=== PATIENT | male | born 1980 | race Two or more races ===

== ENCOUNTER 2022-04-13 21:00 | Emergency (ER) | payer OTHER ==
[~2022-04-13] VITALS: Ht 165.1 cm; Wt 84.1 kg
[2022-04-13] MEDS ORDERED: LISI-894 PO (21:08)
[2022-04-13] MEDS ORDERED: HYDR25TA2 PO (21:08)
[2022-04-13 21:22] LABS: BASOPHILS % (AUTO) 0.6 % (0.0-2.0); EOSINOPHILS % (AUTO) 1.2 % (1.0-6.0); HEMATOCRIT 48.7 % (41-53); HEMOGLOBIN 16.7 g/dL (13.5-17.5); LYMPHOCYTES # (AUTO) 3.4 K/uL (1.0-4.8); MEAN CORPUSCULAR HEMOGLOBIN 32.2 pg (26.0-34.0); MEAN CORPUSCULAR HGB CONC 34.2 G/dL (31.0-37.0); MEAN CORPUSCULAR VOLUME 94 fL (80-100); MONOCYTES # (AUTO) 1.5 K/uL (0.1-1.0); MONOCYTES % (AUTO) 11.3 % (2.0-9.0); NEUTROPHILS % (AUTO) 60.9 % (40.0-70.0); PLATELET COUNT (AUTO) 297 K/uL (150-450); RED BLOOD CELL COUNT(AUTO) 5.17 MIL/uL (4.50-5.90); RED CELL DISTRIBUTION WIDTH 12.8 % (11.5-14.5)
[2022-04-13 21:35] LABS: ANION GAP 5 mmol/L (8-16); CALCIUM, TOTAL 8.6 mg/dL (8.8-10.5); CARBON DIOXIDE 30 mmol/L (22-29); CHLORIDE 103 mmol/L (98-107); GLUCOSE,RANDOM 125 mg/dL (70-110); POTASSIUM 3.8 mmol/L (3.5-5.1); SODIUM SERUM 138 mmol/L (136-145); UREA NITROGEN, BLOOD 20 mg/dL (7-18)
[2022-04-13 21:36] LABS: GLOMERULAR FILTR. RATE CALC > 60 mL/min (>60)
[2022-04-13 21:40] LABS: ALANINE AMINOTRANSFERASE 46 U/L (12-78); ALBUMIN 3.8 g/dL (3.4-5.0); ALKALINE PHOSPHATASE 74 U/L (46-116); ASPARTATE AMINOTRANSFERASE 13 U/L (15-37); BILIRUBIN,TOTAL 0.3 mg/dL (0.1-1.0); LIPASE 1181 U/L (73-393); TOTAL PROTEIN, SERUM 7.4 g/dL (6.4-8.2)
[2022-04-13] MEDS ORDERED: SODIUM CHLORIDE 0.9% 100 ML ONE (22:15)
[2022-04-13] MEDS ORDERED: IOHEXOL 300 MG/ML 100 ML VIAL ONE (22:15)
[2022-04-13 23:00] VITALS: BP 125/80
[2022-04-14] MEDS ORDERED: ONDA-104 PO (00:31)
[2022-04-14] MEDS ORDERED: OXYC-38 PO (00:31)
== END 2022-04-14 00:42 | disposition home or self-care (01) ==
LOC: EMS 21:11
DX: K85.90 Acute pancreatitis without necrosis or infection, unspecified (principal); E78.5 Hyperlipidemia, unspecified; E78.00 Pure hypercholesterolemia, unspecified; F10.20 Alcohol dependence, uncomplicated; I10 Essential (primary) hypertension; Z88.6 Allergy status to analgesic agent; Z87.19 Personal history of other diseases of the digestive system
CPT/HCPCS: 99285; 74177; 80053; 83690; 85025; 36415; 93005; J7050; Q9967

== ENCOUNTER 2023-11-21 18:58 | Emergency (ER) | payer OTHER ==
[~2023-11-21 18:58] MED LIST: HYDR25TA2 PO; LISI-894 PO; ONDA-104 PO; OXYC-38 PO
== END 2023-11-21 20:27 | disposition left against medical advice (07) ==
LOC: EMS 19:01
DX: Z53.21 Procedure and treatment not carried out due to patient leaving prior to being seen by health care provider (principal)
CPT/HCPCS: 93005

== ENCOUNTER 2023-12-26 17:12 | Emergency (ER) | payer OTHER ==
[~2023-12-26] VITALS: Ht 165.1 cm; Wt 82.7 kg
[2023-12-26 17:29] VITALS: TEMP 98.4
[2023-12-26] MEDS ORDERED: SERT-438 PO (18:02)
[2023-12-26] MEDS: HYDROCODONE/ACETAMINOPHEN 5-325 MG TABLET PO ONE (18:11)
[2023-12-26] MEDS: LIDOCAINE 5% TRANSDERMAL PATCH TD ONE (18:13)
[2023-12-26 20:55] VITALS: BP 134/91; PULSE 80; RESP 18
[2023-12-26] MEDS ORDERED: CYCL-448 PO (21:04)
[2023-12-26] MEDS ORDERED: IBUP-1492 PO (21:04)
[2023-12-26] MEDS ORDERED: ACET-3385 PO (21:04)
== END 2023-12-26 21:12 | disposition home or self-care (01) ==
LOC: EMS 17:16
DX: S39.012A Strain of muscle, fascia and tendon of lower back, initial encounter (principal); E78.00 Pure hypercholesterolemia, unspecified; I10 Essential (primary) hypertension; Z88.1 Allergy status to other antibiotic agents; V49.40XA Driver injured in collision with unspecified motor vehicles in traffic accident, initial encounter; Y93.89 Activity, other specified; Y92.89 Other specified places as the place of occurrence of the external cause; Y99.8 Other external cause status
CPT/HCPCS: 72128; 72131; 99284

== ENCOUNTER 2024-03-12 16:15 | Emergency (ER) | payer OTHER ==
[~2024-03-12] VITALS: Ht 165.1 cm; Wt 81.0 kg
[~2024-03-12 16:15] MED LIST changes: +ACET-3385 PO; +CYCL-448 PO; +IBUP-1492 PO; -ONDA-104 PO; -OXYC-38 PO; +SERT-438 PO
[2024-03-12 16:22] VITALS: BP 133/105; PULSE 84; RESP 18; TEMP 98.5; O2SAT 98
== END 2024-03-12 17:55 | disposition home or self-care (01) ==
LOC: EMS 16:19
DX: S96.812A Strain of other specified muscles and tendons at ankle and foot level, left foot, initial encounter (principal); E78.00 Pure hypercholesterolemia, unspecified; I10 Essential (primary) hypertension; Z88.8 Allergy status to other drugs, medicaments and biological substances; X58.XXXA Exposure to other specified factors, initial encounter; Y93.89 Activity, other specified; Y92.89 Other specified places as the place of occurrence of the external cause; Y99.8 Other external cause status
CPT/HCPCS: 93971; 99284; Z7502